=== PATIENT | female | born 1990 | race Two or more races ===

== ENCOUNTER 2018-09-04 15:04 | Emergency (ER) | payer SELFPAY ==
[~2018-09-04] VITALS: Ht 152.4 cm; Wt 90.7 kg
[2018-09-04] MEDS ORDERED: NKM (15:09)
--- NOTE | 2018-09-04 15:19 | Emergency Room Report ---
History of Present Illness General Chief Complaint: Lower Extremity Injury Source: Patient Present Illness HPI 28-year-old female patient presents ER complaining of left foot, toe, and ankle pain for the past month. Patient reports that she suffered an eversion injury while she was walking month ago. Denies falling and hitting her head or loss of consciousness. Reports she was "busy at work" was not able to be seen sooner. Reports pain with ambulation. Reports taking [id number] pain medication as needed. Denies calf pain. denies fever, chest pain, shortness of breath. Allergies: Coded Allergies: No Known Allergies (Unverified , 09/04/18) Patient History Past Medical History: see triage record Last Menstrual Period: at the end of the month Now: No Reviewed Nursing Documentation: PMH: Agreed; PSxH: Agreed Nursing Documentation-PMH Past Medical History: No Stated History Review of Systems All Other Systems: negative except mentioned in HPI Physical Exam Vital Signs Date Time Temp Pulse Resp B/P (MAP) Pulse Ox O2 Delivery O2 Flow Rate FiO2 09/04/18 15:06 98.2 88 18 119/88 96 Room Air Sp02 EP Interpretation: reviewed, normal General Appearance: well appearing, no apparent distress, alert, GCS 15, non- toxic Head: normocephalic, atraumatic Eyes: bilateral eye normal inspection, bilateral eye PERRL ENT: hearing grossly normal, normal pharynx, no angioedema, normal voice, uvula midline, moist mucus membranes Neck: full range of motion Respiratory: lungs clear, normal breath sounds, no rhonchi, no respiratory distress, no accessory muscle use, no wheezing, speaking full sentences Cardiovascular #1: regular rate, rhythm, no edema Cardiovascular #2: 2+ dorsalis pedis (R), 2+ dorsalis pedis (L) Musculoskeletal: back normal, digits/nails normal, gait/station normal, normal range of motion, no calf tenderness, Mari's Sign negative, other - NVI, Refill less than 2 seconds, sensation intact, no deformity, negative syndesmotic squeeze test, tender - over base of left fifth metatarsal, left lateral posterior malleolus and left foot toes Psychiatric: mood/affect normal Skin: no rash Medical Decision Making PA Attestation Dr. Alonzo is my supervising Physician whom patient management has been discussed with. Diagnostic Impression: Primary Impression: Ankle sprain Additional Impression: Foot sprain ER Course Pt. presents to the ED c/o left foot and ankle pain. Ddx considered but are not limited to fracture, sprain, strain, contusion, dislocation. No erythema, no warmth to touch, no fever, nontoxic appearing, low suspicion for septic joint. Soft compartments, no pulselessness, no pallor, no paresthesias, low suspicion for compartment syndrome at this time. Vital signs: are WNL, pt. is afebrile Ordered X-ray and pain medication. ER COURSE Provided with pain medication. An X-ray of the left foot shows no acute fracture per the preliminary reading. An X-ray of the left ankle showed no acute fracture per the preliminary reading. likely sprain causing pain symptoms. Splint/Frank wrap was applied to the left ankle and foot and was checked afterwards by me showing good alignment and support with distal neurovascular functioning intact. Crutches provided. Patient instructed on RICE method: rest, ice, compression, elevation. Patient instructed on rest, ice and heat. Patient instructed to be WBAT Contact information for orthopedic urgent care provided, follow-up with urgent care if unable to followup with primary care provider and get referral to at risk specialist. Followup with primary care provider. Discuss referral to ortho/pain management/ PT as needed. Discuss further imaging with MRI/CT as needed. DISCHARGE: -Rx provided for Tylenol for pain symptoms. At this time pt. is stable for d/c to home. Patient is resting comfortably, in no acute distress, nontoxic appearing, talking without difficulty. Will provide printed patient care instructions, and any necessary prescriptions. Patient instructed to follow with primary care provider in 3 - 5 days and to request further follow-up as needed. Care plan and follow up instructions have been discussed with the patient prior to discharge. Take medications as directed. Patient questions asked and answered. Patient reports understanding and agreement to treatment plan. ER precautions given, patient instructed to return to ER immediately for any new or worsening of symptoms. - Please note that this Emergency Department Report was dictated using [email or web address] technology software, occasionally this can lead to erroneous entry secondary to interpretation by the dictation equipment. Other X-Ray Diagnostic Results Other X-Ray Diagnostic Results #1: X-Ray ordered: left foot # of Views/Limited Vs Complete: 3 View Indication: Pain EP Interpretation: Yes PA Xray: Interpretation reviewed, by supervising MD, and agrees with findings. Interpretation: no dislocation, no soft tissue swelling, no fractures Impression: No acute disease CORBIN Pinedo PA-C Other X-Ray Diagnostic Results #2: X-Ray ordered: left ankle # of Views/Limited Vs Complete: 3 View Indication: Pain EP Interpretation: Yes PA Xray: Interpretation reviewed, by supervising MD, and agrees with findings. Interpretation: no dislocation, no soft tissue swelling, no fractures Impression: No acute disease CORBIN EmmanuelibSukhi Pinedo PA-C Last Vital Signs Date Time Temp Pulse Resp B/P (MAP) Pulse Ox O2 Delivery O2 Flow Rate FiO2 09/04/18 15:06 98.2 88 18 119/88 96 Room Air Status: improved Disposition: HOME, SELF-CARE Condition: Stable Scripts Acetaminophen* (TYLENOL EXTRA STRENGTH*) 500 Mg Tablet 500 MG ORAL Q8H PRN for Prn Headache/Temp > 101, #30 TAB 0 Refills Prov: Shen Pinedo 09/04/18 Patient Instructions: Ankle Sprain, Foot Sprain Additional Instructions: Patient instructed to follow up with primary care provider and discuss further referral to orthopedics/physical therapy/pain management as needed. If unable to followup with PCP, followup with orthopedic urgent care in 5-7 days , call to schedule appointment. Patient instructed on RICE method: rest, ice, compression, elevation. Patient instructed to WBAT. Take medications as directed. Patient questions asked and answered. ER precautions given, patient instructed to return to ER immediately for any new or worsening of symptoms. [facility] [address] [facility] [address] [facility], [address] [email or web address] Shen Pinedo Sep 04, 2018 15:19
[2018-09-04] MEDS ORDERED: TYLENOL EXTRA500 MG ORAL (15:37)
[2018-09-04 15:42] VITALS: BP 119/88
--- NOTE | 2018-09-04 15:59 | Diagnostic Imaging Report ---
Indication: left ankle pain Comparison: None Findings: 3 views of the left ankle obtained. No acute fracture, malalignment, periostitis, or osteochondral defects are identified. Soft tissues are unremarkable. Impression: No acute findings
--- NOTE | 2018-09-04 16:00 | Diagnostic Imaging Report ---
Indication: Foot pain Comparison: None Findings: 3 views of the left foot were obtained. No acute fractures, malalignment, erosions or periostitis are identified. Soft tissues are unremarkable. Impression: No acute findings
== END 2018-09-04 15:42 | disposition home or self-care (01) ==
LOC: EMR 15:23
DX: S93.402A Sprain of unspecified ligament of left ankle, initial encounter (principal); S93.602A Unspecified sprain of left foot, initial encounter; W18.40XA Slipping, tripping and stumbling without falling, unspecified, initial encounter; Y93.01 Activity, walking, marching and hiking; Y92.89 Other specified places as the place of occurrence of the external cause
CPT/HCPCS: 29515; 99283

== ENCOUNTER 2019-02-17 15:13 | Emergency (ER) | payer SELFPAY ==
[~2019-02-17] VITALS: Ht 157.5 cm; Wt 90.7 kg
[~2019-02-17 15:13] MED LIST: NKM; TYLENOL EXTRA500 MG ORAL
[2019-02-17] MEDS ORDERED: TYLENOL EXTRA500 MG ORAL (15:39)
[2019-02-17] MEDS ORDERED: CEPHALEXIN500 MG ORAL (15:39)
--- NOTE | 2019-02-17 15:44 | NUR ---
ED Nurse Note: PT SITTING PEACEFULLY IN BED IN NAD. AOX4. PRESCRIPTIONS AND DISCHARGE PAPERWORK EXPLAINED TO PT. PT VERBALIZES UNDERSTANDING AND ALL QUESTIONS ANSWERED. PRESCRIPTION AND DISCHARGE PAPERWORK GIVEN TO PT AND ID WRISTBAND REMOVED. PT WALKED OUT OF ER WITH STEADY GAIT AND ALL BELONGINGS.
[2019-02-17 16:19] VITALS: BP 124/82
--- NOTE | 2019-02-17 17:52 | Emergency Room Report ---
History of Present Illness General Chief Complaint: Skin Rash/Abscess Source: Patient Present Illness HPI 28-year-old female presents ED for evaluation. She complaining of discoloration and pain to the right hand. Believes it is an insect bite. Started 2 days ago but states pain is getting worse and spreading to the fingers. Denies fevers or chills. Pain is dull, 7 out of 10, nonradiating. Denies any discharge. Denies any sick contacts or recent travel. No other aggravating relieving factors. Denies any other associated symptoms Allergies: Coded Allergies: No Known Allergies (Unverified , 09/04/18) Patient History Past Medical History: none Past Surgical History: none Pertinent Family History: none Social History: Denies: smoking, alcohol use, drug use Last Menstrual Period: 01/30/19 Now: No Immunizations: UTD Reviewed Nursing Documentation: PMH: Agreed; PSxH: Agreed Nursing Documentation-PMH Past Medical History: No Stated History Review of Systems All Other Systems: negative except mentioned in HPI Physical Exam Vital Signs Date Time Temp Pulse Resp B/P (MAP) Pulse Ox O2 Delivery O2 Flow Rate FiO2 02/17/19 15:23 98.2 94 18 94 Room Air 02/17/19 15:43 124/82 Sp02 EP Interpretation: reviewed, normal General Appearance: no apparent distress, alert, GCS 15, non-toxic Head: normocephalic Eyes: bilateral eye normal inspection, bilateral eye PERRL ENT: normal ENT inspection Neck: normal inspection Respiratory: normal inspection Cardiovascular #1: normal inspection Gastrointestinal: normal inspection Rectal: deferred Genitourinary: no CVA tenderness Musculoskeletal: normal inspection Neurologic: alert, oriented x3, responsive, motor strength/tone normal, sensory intact, speech normal Psychiatric: judgement/insight normal, memory normal, mood/affect normal, no suicidal/homicidal ideation Skin: other - 3x3cm area discoloration to dosrsum R hand. no flcutance or discharge. warm to touch Lymphatic: normal inspection Medical Decision Making Diagnostic Impression: Primary Impression: Cellulitis of hand ER Course Hospital Course 28-year-old female presents to ED with discoloration, pain to R hand Differential diagnoses include: Cellulitis, dermatitis, insect bite, abscess Clinical course Patient placed on stretcher. After initial history, physical exam reveals a female in no acute distress. On exam there is area of discoloration and warmth to the dorsum of right hand. Nonfluctuant. No discharge. Warm to touch. Discussed findings with patient Patient afebrile, nontoxic. We'll discharge with antibiotics, warm compresses. States she does not have a PMD. We'll provide referral Safe for discharge with close outpatient follow-up Diagnosis - cellulitis of hand stable and discharged to home with prescription for keflex. warm compresses. Instructed to followup with PMD. Instructed return to ED if symptoms recur or worsen Last Vital Signs Date Time Temp Pulse Resp B/P (MAP) Pulse Ox O2 Delivery O2 Flow Rate FiO2 02/17/19 16:19 98.3 88 17 124/82 98 Room Air Status: improved Disposition: HOME, SELF-CARE Condition: Stable Scripts Cephalexin* (KEFLEX*) 500 Mg Capsule 500 MG ORAL EVERY 6 HOURS for 7 Days, CAP Prov: Mega Masters MD 02/17/19 Acetaminophen* (TYLENOL EXTRA STRENGTH*) 500 Mg Tablet 500 MG ORAL Q6H PRN for Mild Pain/Temp > 100.5, #30 TAB 0 Refills Prov: Mega Masters MD 02/17/19 Referrals: [facility] Jade Nair. [facility] Patient Instructions: Cellulitis, [id number] Mega Masters MD February 17, 2019 17:52
== END 2019-02-17 15:43 | disposition home or self-care (01) ==
LOC: EMR 15:36
DX: L03.113 Cellulitis of right upper limb (principal)
CPT/HCPCS: 99282